=== PATIENT | male | born 1965 | race Caucasian/White ===

== ENCOUNTER 2018-06-14 09:21 | Outpatient (REF) | payer BC, SELFPAY ==
[2018-06-14 21:25] LABS: Cholesterol 279 mg/dL (50-200); HDL Cholesterol 52 mg/dL (40-60); LDL CHOLESTEROL 187 mg/dL (<100); Triglyceride 266 mg/dL (30-150)
== END 2018-06-14 09:22 ==
LOC: NCHCN 09:21
PROVIDERS: PCP Nurse Practitioner Family; Visit Provider Internal Medicine
DX: Z00.00 Encounter for general adult medical examination without abnormal findings (principal); F17.200 Nicotine dependence, unspecified, uncomplicated
CPT/HCPCS: 80061; 83721

== ENCOUNTER 2018-08-13 10:34 | Outpatient (REF) | payer BC, SELFPAY ==
--- NOTE | 2018-08-13 09:45 | SKI_PTH ---
PATIENT: BELKYS BERGERON LOC: [facility] U#:[id number] AGE/SX: 53/M ROOM: RE08/13/[address]: Michele Ang : 1965 BED: DIS: 08/13/2018 SPEC #: [id number] RECD: 08/16/18 11:40 STATUS: ALDAIR REQ #: [id number] SALUD: 08/13/18 09:[address]: Michele Ang DEPT: Surgical Specimen RECD BY: Dahlia Brewer ENTERED: 08/16/18 11:41 SP TYPE: DANA CHAIREZ DR: Valencia Sommer Tissues: 1 - SKIN BIOPSY(SHAVE/PUNCH) Procedures: SKIN LEVEL 4 Comments: [id number]
[2018-08-13 21:00] LABS: Anion Gap 10.8 mmol/L (3-11); BUN 5 mg/dL (7-18); CO2 26.2 mmol/L (21.0-32.0); CREATININE 0.83 mg/dL (0.70-1.30); Calcium 9.3 mg/dL (8.5-10.1); Chloride 94 mmol/L (98-107); Glucose 91 mg/dL (70-100); Lipase 461 U/L (73-393); Potassium 3.7 mmol/L (3.5-5.1); Sodium 131 mmol/L (136-145)
== END 2018-08-13 10:54 ==
LOC: NCHCN 10:34
PROVIDERS: PCP Nurse Practitioner Family; Visit Provider Internal Medicine
DX: I10 Essential (primary) hypertension (principal); L98.9 Disorder of the skin and subcutaneous tissue, unspecified; K85.90 Acute pancreatitis without necrosis or infection, unspecified; L91.8 Other hypertrophic disorders of the skin
CPT/HCPCS: 80048; 83690; 88305

== ENCOUNTER 2018-09-08 09:22 | Outpatient (REF) | payer BC, SELFPAY ==
[2018-09-08 21:14] LABS: Anion Gap 12.8 mmol/L (3-11); BUN 11 mg/dL (7-18); CO2 24.2 mmol/L (21.0-32.0); CREATININE 1.11 mg/dL (0.70-1.30); Calcium 10.1 mg/dL (8.5-10.1); Chloride 97 mmol/L (98-107); Glucose 97 mg/dL (70-100); Lipase 233 U/L (73-393); Potassium 4.8 mmol/L (3.5-5.1); Sodium 134 mmol/L (136-145)
== END 2018-09-08 09:42 ==
LOC: NCHCN 09:22
PROVIDERS: PCP Nurse Practitioner Family; Visit Provider Family Medicine
DX: K85.90 Acute pancreatitis without necrosis or infection, unspecified (principal); E87.1 Hypo-osmolality and hyponatremia
CPT/HCPCS: 80048; 83690

== ENCOUNTER 2018-10-07 15:31 | Outpatient (REF) | payer BC, SELFPAY ==
[2018-10-07 21:59] LABS: Abs Immature Grans 0.03 k/cumm (0.0-0.09); HGB 9.2 g/dL (13.5-17.5); Mean Corp. HGB Concentration 32.9 g/dL (32.0-36.0); Mean Corpuscular Hemoglobin 31.5 pg (27.0-33.0); Mean Corpuscular Volume 95.9 fL (80-95); Mean Platelet Volume 11.9 fL (8.0-11.0); Platelet Count 458 x1000/uL (130-400); RBC 2.92 m/cumm (4.50-6.00); RBC Distribution Width 12.7 % (11.8-14.1); White Blood Cell Count 11.88 k/cumm (4.4-10.8)
[2018-10-07 22:09] LABS: ALT 22 U/L (12-78)
[2018-10-07 22:55] LABS: Absolute Eosinophil Count 1.19 k/cumm (0.0-0.7); Absolute Lymphocyte Count 1.66 k/cumm (1.2-3.4); Absolute Monocyte Count 0.48 k/cumm (0.11-0.7); Absolute Neutrophil Count 8.55 k/cumm (1.2-6.7)
[2018-10-07 22:58] LABS: Diff Comment Manual Differential; RBC Morphology Normal
[2018-10-11 07:21] LABS: Anion Gap 10.6 mmol/L (3-11); BUN 8 mg/dL (7-18); CO2 27.4 mmol/L (21.0-32.0); CREATININE 0.96 mg/dL (0.70-1.30); Calcium 9.2 mg/dL (8.5-10.1); Chloride 97 mmol/L (98-107); Glucose 99 mg/dL (70-100); Potassium 4.6 mmol/L (3.5-5.1); Sodium 135 mmol/L (136-145)
[2018-10-11 14:14] LABS: Albumin 52.4 % (55.8-66.1); Total Protein 6.3 g/dl (6.3-8.2)
== END 2018-10-07 15:51 ==
LOC: NCHCN 15:31
PROVIDERS: PCP Nurse Practitioner Family; Visit Provider Internal Medicine
DX: J94.2 Hemothorax (principal); S22.41XD Multiple fractures of ribs, right side, subsequent encounter for fracture with routine healing
CPT/HCPCS: 80048; 82306; 84165; 84460; 85025

== ENCOUNTER 2018-10-19 08:28 | Outpatient (REF) | payer BC, SELFPAY ==
[2018-10-21 12:47] LABS: Total Protein 6.8 g/dl (6.3-8.2)
[2018-10-21 19:07] LABS: Tissue Transglutaminase Ab IgA <1.2 U/mL; Tissue Transglutaminase Ab IgG 3.2 U/mL
== END 2018-10-19 08:48 ==
LOC: NCHCN 08:28
PROVIDERS: PCP Nurse Practitioner Family; Visit Provider Internal Medicine
DX: E55.9 Vitamin D deficiency, unspecified (principal); S22.41XD Multiple fractures of ribs, right side, subsequent encounter for fracture with routine healing; J94.2 Hemothorax
CPT/HCPCS: 83516; 84165

== ENCOUNTER 2018-12-13 15:19 | Outpatient (REF) | payer BC, SELFPAY ==
[2018-12-13 21:43] LABS: Vitamin D 25 Total 25.8 ng/ml (30-100)
== END 2018-12-13 15:39 ==
LOC: NCHCN 15:19
PROVIDERS: PCP Nurse Practitioner Family; Visit Provider Internal Medicine
DX: E55.9 Vitamin D deficiency, unspecified (principal)
CPT/HCPCS: 82306

== ENCOUNTER 2019-03-02 13:05 | Outpatient (REF) | payer BC, SELFPAY ==
[2019-03-02 21:55] LABS: Abs Immature Grans 0.02 k/cumm (0.0-0.09); Absolute Basophil Count 0.06 k/cumm (0.0-0.2); Absolute Eosinophil Count 0.11 k/cumm (0.0-0.7); Absolute Lymphocyte Count 2.13 k/cumm (1.2-3.4); Absolute Monocyte Count 0.55 k/cumm (0.11-0.7); Basophils % 0.5; Eosinophils % 0.9; HCT 43.3 % (40.0-50.0); HGB 14.8 g/dL (13.5-17.5); Immature Grans % 0.2; Lymphocytes % 17.7; Mean Corp. HGB Concentration 34.2 g/dL (32.0-36.0); Mean Corpuscular Hemoglobin 30.6 pg (27.0-33.0); Mean Corpuscular Volume 89.5 fL (80-95); Mean Platelet Volume 11.4 fL (8.0-11.0); Monocytes % 4.6; Neutrophils % 76.1; Platelet Count 341 x1000/uL (130-400); RBC 4.84 m/cumm (4.50-6.00); RBC Distribution Width 14.9 % (11.8-14.1); White Blood Cell Count 12.06 k/cumm (4.4-10.8)
[2019-03-02 21:57] LABS: Absolute Neutrophil Count 9.18 k/cumm (1.2-6.7)
[2019-03-02 22:35] LABS: ESR 4 MM/HR (1-20)
[2019-03-02 22:46] LABS: ALT 26 U/L (12-78); AST 24 U/L (15-37); Albumin 4.2 g/dL (3.4-5.0); Alkaline Phosphatase 96 U/L (46-116); Anion Gap 13.3 mmol/L (3-11); BUN 7 mg/dL (7-18); Bilirubin, Total 0.3 mg/dL (0.2-1.0); CO2 23.7 mmol/L (21.0-32.0); Calcium 9.9 mg/dL (8.5-10.1); Chloride 98 mmol/L (98-107); Ferritin 58 ng/mL (8-388); Glucose 94 mg/dL (70-100); Potassium 4.4 mmol/L (3.5-5.1); Sodium 135 mmol/L (136-145); TSH 2.31 uIU/mL (0.358-3.74); Total Protein 7.8 g/dL (6.4-8.2)
[2019-03-02 23:05] LABS: C-Reactive Protein 0.22 mg/dL (0.0-0.3)
[2019-03-04 17:51] LABS: Tissue Transglutaminase Ab IgA <1.2 U/mL
== END 2019-03-02 13:25 ==
LOC: NCHCN 13:05
PROVIDERS: PCP Nurse Practitioner Family; Visit Provider Internal Medicine
DX: R19.7 Diarrhea, unspecified (principal)
CPT/HCPCS: 80053; 85652; 82728; 83516; 84443; 85025; 86140

== ENCOUNTER 2019-03-31 17:04 | Outpatient (REF) | payer BC, SELFPAY ==
[2019-04-01 12:24] LABS: Abs Immature Grans 0.04 k/cumm (0.0-0.09); Absolute Eosinophil Count 0.17 k/cumm (0.0-0.7); Absolute Lymphocyte Count 2.72 k/cumm (1.2-3.4); Absolute Monocyte Count 0.61 k/cumm (0.11-0.7); Absolute Neutrophil Count 9.11 k/cumm (1.2-6.7); Basophils % 0.6; Eosinophils % 1.3; HCT 43.1 % (40.0-50.0); HGB 14.7 g/dL (13.5-17.5); Immature Grans % 0.3; Lymphocytes % 21.4; Mean Corp. HGB Concentration 34.1 g/dL (32.0-36.0); Mean Corpuscular Hemoglobin 31.5 pg (27.0-33.0); Mean Corpuscular Volume 92.5 fL (80-95); Mean Platelet Volume 11.5 fL (8.0-11.0); Monocytes % 4.8; Neutrophils % 71.6; Platelet Count 352 x1000/uL (130-400); RBC 4.66 m/cumm (4.50-6.00); White Blood Cell Count 12.72 k/cumm (4.4-10.8)
[2019-04-01 12:29] LABS: Absolute Basophil Count 0.08 k/cumm (0.0-0.2)
== END 2019-03-31 17:24 ==
LOC: NCHCN 17:04
PROVIDERS: PCP Nurse Practitioner Family; Visit Provider Internal Medicine
DX: D72.829 Elevated white blood cell count, unspecified (principal)
CPT/HCPCS: 85025

== ENCOUNTER 2019-11-28 22:49 | Outpatient (REF) | payer BC, SELFPAY ==
[2019-12-02 08:09] LABS: Free Retinol (Vitamin A) 59.7 mcg/dL (32.5-78.0)
== END 2019-11-28 23:09 ==
LOC: NCHCN 22:49
PROVIDERS: PCP Internal Medicine; Visit Provider Internal Medicine
DX: R19.7 Diarrhea, unspecified (principal); Z87.19 Personal history of other diseases of the digestive system
CPT/HCPCS: 82710; 84590; 84597